=== PATIENT | female | born 1995 | race Caucasian/White ===

== ENCOUNTER 2021-04-04 14:17 | Emergency (ER) | payer SELFPAY ==
[2021-04-04 14:36] VITALS: BP 145/93; PULSE 116
--- NOTE | 2021-04-04 14:56 | EDM.PDOC ---
ED HPI GENERAL MEDICAL PROBLEM - General Chief Complaint: Allergic Reaction Stated Complaint: ALLERGIC REACTION Time Seen by Provider: 04/04/21 14:48 Source of Information: Reports: Patient History Limitations: Reports: No Limitations - History of Present Illness INITIAL COMMENTS - FREE TEXT/NARRATIVE: Luca is a 25 year old female whom present to ER with acute onset of chest t ightness and forceful cough. Luca has been using nicotine vaping pen for quite some time at increased dosage and now using 60% nicotine solution which can be purchased on a local smoke/vape shop down [facility]. Luca has known she needs to quit vaping for quite some time but no trigger to change until this weekend during a family reunion, multiple people verbalized concern regarding her coughing and symptoms. Luca went to strawberry picking today resulting in more significant bronchospasms and symptoms of cough variant asthma with environmental trigger and underlying chronic pneumonitis due to vaping. Luca got scared about her lungs and lung health to the point of presenting to ER for evaluation, treatment and recommendations. - Related Data Allergies Allergy/AdvReac Type Severity Reaction Status Date / Time Penicillins Allergy Hives Verified 04/04/21 14:41 Home Meds: Home Meds Albuterol [Proair HFA] 1 puff INH Q2HR PRN 02/07/15 [History] Albuterol [Proventil Neb Soln] 2.5 mg .XX QID 3 Days #20 ml 04/04/21 [Rx] Albuterol [Ventolin HFA] 2 puff .XX Q4HR PRN 90 Days #1 ea 04/04/21 [Rx] Varenicline [Chantix] 0.5 - 1 mg PO BIDPC 60 Days #60 tab 04/04/21 [Rx] norgestimate-ethinyl estradioL [Tri-Sprintec Tablet] 04/04/21 [History] Past Medical History - Past Health History Medical/Surgical History: Denies Medical/Surgical History Social & Family History - Recreational Drug Use Recreational Drug Type: Reports: Marijuana/Hashish ED ROS ALLERGIC REACTION - Review of Systems Review Of Systems: Comprehensive ROS is negative, except as noted in HPI. ED EXAM GENERAL NO PERIP PULSE - Physical Exam Exam: See Below Exam Limited By: No Limitations General Appearance: Alert, WD/WN, Moderate Distress (forceful cough to point of gagging vomiting and tearful) Ears: Hearing Grossly Normal Nose: Normal Inspection, Normal Mucosa, Nasal Drainage, Clear Rhinorrhea Throat/Mouth: Normal Inspection, Normal Voice, No Airway Compromise Neck: Normal Inspection Respiratory/Chest: No Respiratory Distress, Lungs Clear, Other (cough respsone with any deeper respiration attempts (caugh variant asthma) ) Cardiovascular: Normal Peripheral Pulses, Regular Rate, Rhythm Extremities: Normal Inspection, Normal Range of Motion Neurological: Alert, Oriented, CN II-XII Intact Psychiatric: Anxious, Tearful Skin Exam: Warm, Dry, Intact, Normal Color Course - Vital Signs Last Recorded V/S: Last Vital Signs Temp 36.6 C 04/04/21 14:47 Pulse 116 H 04/04/21 14:47 Resp 18 04/04/21 14:47 BP 145/93 H 04/04/21 14:47 Pulse Ox 98 04/04/21 14:47 - Orders/Labs/Meds Orders: Active Orders 24 hr Category Date Time Status RT Aerosol Therapy [RC] ASDIRECTED Care 04/04/21 14:57 Active RT Post Treatment Assessment [RC] Click to Edit Care 04/04/21 14:57 Active Meds: Medications Discontinued Medications Generic Name Dose Route Start Last Admin Trade Name Freq PRN Reason Stop Dose Admin Albuterol 2.5 mg 04/04/21 14:57 04/04/21 15:03 Albuterol 0.083% 2.5 Mg/3 Ml Neb Soln NEB 04/04/21 14:58 2.5 mg ONETIME ONE Administration Albuterol 0 gm 04/04/21 14:57 04/04/21 15:03 Albuterol 8 Gm Inhaler INH 04/04/21 14:58 2 puff ONETIME ONE Administration Departure - Departure Time of Disposition: 15:48 Disposition: Home, Self-Care 01 Clinical Impression: Pneumonitis, Encounter for smoking cessation counseling - Discharge Information Prescriptions: Varenicline [Chantix] 0.5 - 1 mg PO BIDPC 60 Days #60 tab Albuterol [Proventil Neb Soln] 2.5 mg .XX QID 3 Days #20 ml Albuterol [Ventolin HFA] 2 puff .XX Q4HR PRN 90 Days #1 ea PRN Reason: cough Instructions: Asthma, Adult, Pneumonitis, Asthma Attack Prevention, Adult, Tobacco Use Disorder, Nicotine skin patches, Nicotine nasal spray, Nicotine inhaler, Nicotine chewing gum, Nicotine lozenge Referrals: PCP,None [Primary Care Provider] - Forms: ED Department Discharge Additional Instructions: ([id number]). Telephone counseling Telephone counseling can be used as the primary behavioral therapy approach or incorporated into a team-based approach to smoking cessation. Proactive telephone counseling has been shown to be more effective than reactive telephone counseling. In the proactive approach, a counselor initiates a call to a smoker on a prearranged schedule; in reactive counseling, a smoker initiates the call to a counselor. Most quitlines offer proactive calls several times during the quitting process, and many quitlines offer smoker-initiated reactive counseling also. (See "Overview of smoking cessation management in adults", section on 'Variations of the 5A's approach'.) Smokers can access free proactive telephone counseling throughout the [place] at a toll-free number (5-581-RZFC-NOW). Some states in the [facility] have developed fax-referral programs to link clinician offices to their state telephone quitline. In some states, the quitline distributes free nicotine replacement therapy to eligible quitline callers [20]. Telephone counseling programs are more effective than simple self-help interventions, in which smokers are provided with take-home written or audiovisual material to aid them in quitting on their own [21]. In a clinical trial, among practices that were randomized to routinely refer smokers to a telephone quitline, patients had higher smoking cessation rates at 3 and 12 months compared with those who received standard general practitioner care [22]. Text messaging Mobile phone text messaging consists of personalized smoking cessation support through a series of automated motivational messages. Messages suggest behavioral changes and provide positive feedback, and allow patients to request additional assistance as needed. The [employer] [place] has developed a mobile phone smoking cessation service for adolescents and young adults: SmokeFreeTXT program. Web resources and interventions Smoking cessation interventions that are delivered in more than one format increase abstinence rates. Thus, supplementing information discussed during interventions with self-help materials can serve both as a reinforcement and a time-saving resource for the clinician. Several organizations provide patient resource areas or learning centers where patients can access additional materials. Web-based tools may assist in smoking cessation, most notably if the materials are tailored to the user, interactive, and accessed frequently [27]. Website resources include the following: [employer] Offers telephone, text, tailored email web-based support and apps to support smoking cessation. Includes information and resources from the [employer] to help with quitting smoking. Stop Smoking Offers information and resources, as well as contact with a counselor via telephone, email, or a chat function. Includes an online guide by the [employer] on smoking cessation. [employer] [facility] [place] Offers telephone and online support. Includes information on smoking cessation in [place] and [place] and general information on health effects of tobacco. Smoke[employer] Offers free texting programs, telephonic and chat support, access to smartphone applications (apps), information on healthy habits, the effects of smoking on health, and tips on preparing to quit, including resources specifically for women and teens, in [place] and [place] on a website of the [place] Department of Health and Human Services. Includes a tool patients may use to build their quit plan. Phone apps Smoking cessation applications (apps) on smart phones have the potential to be useful as behavioral therapy tools; however, studies of smoking cessation apps have determined there is often low adherence to clinical practice guidelines [32-35]. A review of free smartphone applications (apps) available in 2014 showed that, compared with apps available two years earlier, the newer apps were less likely to use behavioral change techniques associated with success in quitting smoking and more likely to offer information about pharmacotherapy and coping with aircraft air conditioning mechanic vings [36]. Several types of behavioral interventions through mobile phones are being studied, including short video clips and cognitive behavioral tips to quit smoking; however, rigorous studies of the long-term effects of mobile phone apps on smoking cessation are needed [37-39]. CIPRIANO: Avoid, Change, Escape. Strategies for coping with smoking triggers. Strategy Helpful statements Helpful questions Avoid - staying away from high-risk environments As smokers prepare or try to quit, it is sometimes helpful to avoid people, places, and events that may tempt them to smoke. What are the things that trigger you to smoke? Which of these do you think you can avoid over the next week or so? Change - altering a high-risk situation Sometimes it's not possible to avoid the things that trigger smoking. But another option is to change the situation, even a little, so that you feel less tempted to smoke. What are a couple of situations that trigger your smoking but that may be hard to avoid? What can you do to change the situation to make smoking less tempting? Escape - planning how to excuse oneself from high-risk situations Sometimes, situations catch you by surprise. Staying in the situation can make it too tempting to smoke. In these cases, another option may be to leave the situation. Did you find yourself lately in a situation like this? What happened? Would leaving have been an option? What would it be like to leave? Sepsis Event Note (ED) - Evaluation Sepsis Screening Result: No Definite Risk - Focused Exam Vital Signs: Vital Signs Temp Pulse Resp BP Pulse Ox 04/04/21 14:47 36.6 C 116 H 18 145/93 H 98 04/04/21 14:34 36.6 C 116 H 18 145/93 H 98 - My Orders Last 24 Hours: My Active Orders 04/04/21 14:57 RT Aerosol Therapy [RC] ASDIRECTED RT Post Treatment Assessment [RC] Click to Edit - Assessment/Plan Last 24 Hours: My Active Orders 04/04/21 14:57 RT Aerosol Therapy [RC] ASDIRECTED RT Post Treatment Assessment [RC] Click to Edit Plan: FIRST-LINE AGENTS Nicotine replacement therapy The goal of nicotine replacement therapy (NRT) is to relieve nicotine withdrawal symptoms by providing nicotine without the use of tobacco, while the individual breaks the behavior of cigarette smoking. First-line NRT does not include electronic cigarettes. Safety Side effects common among all NRT products include gastrointestinal symptoms (nausea, vomiting, abdominal pain, diarrhea), headache, and local irritation depending on the delivery method [59]. Those who experience side effects from NRT products can titrate use of the product to minimize side effects or change products. The side effect profile specific to each type of NRT is discussed below [60]. Patients may worry that they will become dependent on NRT, but nicotine dependence rarely occurs, especially with the long-acting patch [60]. Patients may also worry that nicotine causes cancer, which it does not. NRT is safe to use in patients with known stable cardiovascular disease (CVD). While there is limited information regarding its use after acute coronary syndrome (ACS), it is generally used to reduce nicotine withdrawal symptoms in the hospital when needed [1]. (See 'Cardiovascular disease' above and "Cardiovascular effects of nicotine", section on 'Safety of nicotine replacement therapy'.) Efficacy Studies show that NRT is effective for smoking cessation. Few trials have directly compared one product with another; however, in randomized trials, all individual NRT products were found to be superior to placebo, increasing quit rates up to twofold (table 2) [17,18,61,62]. In one randomized trial evaluating NRT (including patch, gum, inhaler, and nasal spray) in a general adult population, there was no difference in efficacy between products [63]. The efficacy of NRT for patients with severe mental illness is described separately. (See "Modifiable risk factors for cardiovascular disease in patients with severe mental illness", section on 'Nicotine replacement treatment'.) The consensus among experts, supported by evidence from most clinical trials, is that single-agent NRT is less effective than combining the long-acting patch with a short-acting form such as gum, lozenge, or inhaler [1,2]. In a meta- analysis of 14 randomized trials, use of a nicotine patch combined with a short- acting NRT product (gum, spray, or inhaler) was more effective than a single type of NRT (relative risk 1.25, 95% CI 1.15-1.36) [64]. Combination NRT was also found to be more effective than single-product therapies in other trials [ 54,55,65]. However, in one randomized trial of 1086 smokers that compared 12 weeks of individual NRT (nicotine patch), combination NRT (nicotine patch plus nicotine lozenge), and varenicline, there were no differences in biochemically confirmed rates of smoking abstinence among the three groups [14]. Additionally, in some, but not all trials, NRT benefits men more than women [ 66,67]. Administration For tobacco users wishing to use NRT, we suggest a combination of long- and short-acting NRT as initial therapy. Differences in the bioavailability of NRT products provide the rationale for combining NRT products to increase efficacy for smoking cessation [61]. NRT products can be used in combination because each agent produces a lower blood nicotine level than does smoking one pack of cigarettes daily. In addition, individuals who smoke already have experience titrating their nicotine intake to avoid both nicotine withdrawal and nicotine overdose; they have performed this titration throughout their years as cigarette smokers. The initial dosing of most NRT products is based on the number of cigarettes smoked daily, as discussed below. NRT dose is then gradually tapered. In general, NRT use is recommended for two to three months after smoking cessation, although NRT use for as long as an individual is at high risk for relapse is acceptable because NRT is much safer than continuing to smoke. Some people may need to use the products indefinitely. In addition, NRT products can also be used while the person is still smoking [68]. Nicotine transdermal patch (long-acting) The nicotine patch provides the most continuous nicotine delivery among all NRT products and is the simplest NRT to use. The patch has a long-acting, slow-onset pattern of nicotine delivery, which produces relatively constant relief from withdrawal over 24 hours [69] but requires several hours to reach peak levels. Compliance with the patch is high; however, the user cannot adjust the dose of nicotine being released to respond to nicotine cravings and withdrawal symptoms. The patch is available over the counter and by prescription in the [place]. ?Dosing and instructions for nicotine patch Initial patch dosing is determined by the number of cigarettes smoked daily when the patch is started as well as the patient's weight: >10 cigarettes per day: apply 21 mg/day patch =10 cigarettes per day: apply 14 mg/day patch Remove and replace the patch with a new one each morning to any non-hairy skin site; rotate the site daily to avoid skin irritation, the most common side effect. [id number]-shg-cmshlva topical hydrocortisone (1% cream or ointment) may be used to relieve skin irritation if it occurs. If leaving the patch on overnight causes the frequently reported side effects of insomnia and vivid dreams, remove the patch at bedtime and replace with a new one the next morning. Smoking cessation rates are similar whether the patch is left on for 24 hours or taken off at night [70]. If the patch is removed at night and replaced with a new one in the morning, adequate plasma levels of nicotine are reached 30 minutes to three hours after the new patch is applied [71]. If morning nicotine cravings occur before plasma nicotine levels rise, we advise use of a short-acting NRT (eg, gum, lozenge) while waiting for the new nicotine patch to take effect. Although patches are typically marketed with instructions to taper the dose over 12 weeks, in clinical trials and experience, tapering has not improved smoking cessation rates [1]. Tapering the dose is not required, but optional; this approach can be used if patients feel that cravings and withdrawal symptoms are well controlled, but they wish to reduce the dose. As examples: ?For patients using the 21 mg/day patch successfully, the dose may be lowered to 14 mg/day after six weeks. For patients who prefer to lower the dose further, this can be followed by the 7 mg/day patch for the duration of therapy, although continuation of the 21 mg/day or the 14 mg/day dose for the duration of therapy is reasonable. ?For patients using the 14 mg/day patch successfully, the dose may be continued for the duration of treatment. For patients who prefer, the dose can be lowered to 7 mg/day after the initial six weeks, and this dose may be continued for the remainder of therapy. ?Duration of nicotine patch therapy - Longer duration (more than 8 to 10 weeks) of treatment with the nicotine patch may lead to improved smoking cessation rates. Generally, NRT is used until a patient feels that they have stabilized as a nonsmoker. The patch may be continued longer, even indefinitely if needed, as NRT is safer than continued smoking. NRT is often used for a longer period in patients with comorbid psychiatric illness or other substance use disorders. In a randomized trial of 568 smokers that compared eight weeks of nicotine patch therapy with extended therapy (24 weeks), longer treatment resulted in higher rates of seven-day point-prevalence abstinence at 24 weeks (odds ratio [OR] 1.81, 95% CI 1.23-2.66) [72]. A subsequent randomized trial in 525 smokers who received 12 sessions of smoking cessation behavioral counseling along with the nicotine patch for 8, 24, or 52 weeks found benefit at 24 weeks to using the nicotine patch for 24 or 52 weeks rather than for 8 weeks. However, there were no differences in abstinence rates at 52 weeks [73]. Short-acting nicotine replacement therapy A short-acting form of NRT (lozenge, gum, inhaler, or nasal spray) can be used as a single agent or can be added to nicotine patch therapy to help control cravings and manage withdrawal symptoms. However, short-acting preparations require repeated use throughout the day, lead to more variable nicotine levels than the patch, and require more instructions for correct use. Patients can be instructed to use the product when they have a craving, although this generally leads them to underuse the products. A preferred approach for those in whom this "as needed" use of short-acting NRT fails to control cravings is to have the individual use the product at least once every hour while awake and more often if needed. The choice of a short-acting agent depends on patient preference and comorbidities (eg, reactive airways, temporomandibular disorders, poor dentition). The nicotine patch, lozenge, and gum are available in the [place] without a prescription; nasal spray and oral inhaler require a prescription. Nicotine mouth spray and a sublingual tablet are available outside the [place]. Nicotine gum Nicotine gum is a commonly used short-acting NRT. Chewing the gum releases nicotine, which is absorbed through the oral mucosa. This results in peak blood nicotine levels 20 minutes after starting to chew. Nicotine gum is available in several flavors that most users find preferable to the original flavor. ?Dosing is determined by how soon the first cigarette is typically smoked upon awakening [74]: For people who smoke within 30 minutes of awakening: the 4 mg dose is recommended For people who wait more than 30 minutes after awakening to smoke: the 2 mg dose is recommended ?Chew at least one piece of gum every one to two hours while awake and also whenever there is an urge to smoke. ?Patients may use up to 24 pieces of gum per day for the first six weeks of treatment. ?Gradually reduce use over the next six weeks, for a minimum treatment duration of three months. ?Proper chewing of gum is important for optimal results. "Chew and park" is recommended: chew the gum until the nicotine taste appears, then "park" the gum against the buccal mucosa until the taste disappears, then chew a few more times to release more nicotine. Repeat this for 30 minutes, then discard the gum (because all nicotine in the gum has been released). In addition, gastric and esophageal irritation can occur if the gum is chewed too rapidly, because nicotine is released faster than it can be absorbed by the buccal mucosa and the nicotine is thus swallowed. Nicotine absorbed from the gastrointestinal tract is largely metabolized by the liver and is therefore relatively ineffective for smoking cessation. ?Acidic beverages (eg, coffee, carbonated drinks) should be avoided before and during gum use, as acidic beverages lower oral pH, which causes nicotine to ionize and reduces nicotine absorption. Side effects are mostly a consequence of excess nicotine release with overly vigorous chewing and consist of nausea, vomiting, abdominal pain, constipation, hiccups, headache, excess salivation, a sore jaw, and mouth irritation or ulcers. Chewing gum may exacerbate temporomandibular joint disease and the gum can damage or adhere to dental appliances. Those with temporomandibular joint disease, with poor dentition, or who use dental appliances (eg, removable orthodontic appliances, dentures) may do better with an alternative short-acting form of NRT such as the lozenge or inhaler. Nicotine lozenge Nicotine lozenges are a commonly used short-acting NRT product, with pharmacokinetics similar to nicotine gum. Lozenges are easier to use correctly than nicotine gum and are also available in different flavors. A smaller mini-lozenge is also on the [place] market. It dissolves more rapidly and delivers nicotine more rapidly than the original lozenge and in our clinical experience is preferred by most people who smoke. ?Dosing is determined by how soon the first cigarette is typically smoked upon awakening [75]: For those who smoke within 30 minutes of awakening: the 4 mg dose is recommended For those who wait more than 30 minutes after awakening to smoke: the 2 mg dose is recommended ?Patients may use up to one lozenge every one to two hours for the first six weeks of treatment. The maximum dose is five lozenges every six hours or 20 lozenges per day. ?Gradually reduce number of lozenges used per day over the next six weeks. ?Place lozenge in the mouth and allow it to dissolve over 30 minutes. The lozenge does not need to be chewed. An advantage of the lozenge over the gum is that it can be used in those with temporomandibular disorders, poor dentition, or dentures. Side effects include mouth irritation or ulcers, in addition to nicotine-related side effects of abdominal pain, nausea, vomiting, diarrhea, headache, and palpitations. Nicotine inhalers These consist of a mouthpiece and a plastic, nicotine- containing cartridge. The inhaler addresses not only physical dependence but also the behavioral and sensory aspects of smoking (ie, having a cigarette between one's fingers and inhaling from the cigarette). When the individual inhales through the device, nicotine vapor (not smoke) is released, deposited primarily in the oropharynx, and absorbed through the oral mucosa. Nicotine vapor does not reach the lungs to an appreciable extent. The ad joseph use of the nicotine inhaler produces plasma nicotine levels that are roughly one-third of those that occur with cigarette smoking. The pharmacokinetics of the inhaler resemble those of nicotine gum. Initial dosing of the nicotine inhaler is individualized "as needed" and tapered over the course of therapy: ?Patients may use 6 to 16 cartridges per day for the first 6 to 12 weeks of treatment ?Gradually reduce dose over the next 6 to 12 weeks When using the nicotine inhaler, it is important to puff in short breaths or inhale into back of throat (not the lungs). Twenty minutes of continuous puffing may yield the best effect, but patients may individualize dosing. Nicotine in the inhaler is used up after 20 minutes of puffing (eg, puffing on inhaler for 10 minutes gives enough nicotine for two uses). Once opened, cartridge remains effective for 24 hours. Side effects occurring commonly include localized irritation of the mouth or throat, particularly during the early stages of use. Because inhaled nicotine may cause bronchospasm, it may be less appropriate for individuals with a history of severe airway reactivity. Nicotine nasal spray The nicotine nasal spray delivers an aqueous solution of nicotine to the nasal mucosa. Absorption via nasal mucosa results in peak nicotine levels 10 minutes after nasal spray use, which is a more rapid rise in plasma nicotine concentration than that produced by agents absorbed via the oral mucosa (eg, gum, inhaler, or lozenge). Nasal spray more closely mimics changes in nicotine concentration that occur while smoking, although the nasal spray does not increase nicotine levels nearly as fast as smoking a cigarette [76]. However, inhaling nicotine into the nasal mucosa produces side effects, particularly nasal irritation, that have limited its tolerability. Dosing, duration, and instructions for use: ?Dose is one or two sprays per hour ?Use for about three months ?The maximum dose is 10 sprays per hour, not to exceed 80 total sprays per day Side effects include nasal and throat irritation, rhinitis, sneezing, and tearing. Nasal irritation is extremely common, occurring in 94 percent of patients during the first two days of use and continuing in 81 percent of patients after three weeks of therapy [77]. Varenicline Varenicline reduces the symptoms of nicotine withdrawal by binding with high affinity and acting as a partial agonist at the alpha-4 beta-2 nicotinic receptor. It blocks nicotine from binding to the receptor, interrupting the reinforcing effects of nicotine that lead to nicotine dependence. Through this action, varenicline reduces the rewarding aspects of cigarette smoking [82-84]. Through its stimulating effects of the receptor, it also reduces withdrawal and cravings. Safety The most common side effects reported are nausea and disordered sleep, including insomnia and abnormal (vivid, unusual, or strange) dreams. There were early concerns about neuropsychiatric and cardiovascular side effects of varenicline, but subsequent studies have not supported these concerns, and varenicline is generally considered safe. Varenicline is safe for use by tobacco users with chronic obstructive pulmonary disease (COPD) [85]. ?Neuropsychiatric effects Despite earlier concerns, subsequent data indicate that varenicline does not cause an excess of neuropsychiatric side effects compared with nicotine replacement or bupropion. In August 2016, the [place] Food and Drug Administration (FDA) removed the boxed warning about potential neuropsychiatric side effects. In the initial post-marketing period, there had been concern about the potential for varenicline's adverse psychiatric effects, especially in patients with underlying psychiatric comorbidities. Based on its review of post-marketing case reports, the FDA in 2008 had required varenicline (and bupropion) to carry a boxed warning about possible serious neuropsychiatric side effects, including suicide and suicidal ideation, associated with these medications [86]. The FDA also required the drug manufacturers to conduct a large randomized controlled trial of the two drugs efficacy and safety in patients with and without psychiatric illness (largely depression and anxiety disorders). The resulting double-blind trial, Evaluating Adverse Events in a Global Smoking Cessation Study (EAGLES), enrolled approximately 8000 smokers motivated to quit, half of whom had stable psychiatric disorders (eg, major depressive, bipolar, or anxiety disorders) [17]. Although patients with a psychiatric comorbidity had higher rates of neuropsychiatric symptoms than patients without this comorbidity, rates were low for both groups, and there was no difference between those treated with NRT, bupropion, varenicline, or placebo. Based on these data, the FDA removed the boxed warning for varenicline (and bupropion) in August 2016 [87]. In addition, in a previous meta-analysis including 39 randomized trials and over 10,000 participants with and without psychiatric illness, varenicline did not increase the risk of suicide or suicide attempts, suicidal ideation, depression, aggression, or compared with placebo [88]. ?Cardiovascular effects Although concern has been raised that varenicline might increase the risk of adverse cardiovascular events, the bulk of the evidence does not indicate an increased risk. For patients at low risk for an acute coronary event, it appears unlikely that varenicline is associated with a clinically meaningful increase in cardiovascular events. In addition, for high- risk patients, the effect of varenicline is less certain, although no large increase in risk has been observed. Further, it is likely that any cardiovascular risk of taking varenicline, if it exists, is likely to be far smaller than the risk of continuing to smoke cigarettes. A 2011 FDA advisory and a 2018 labeling update suggested that the known benefits of varenicline for smoking cessation be weighed against potential harms in patients with CVD [89,90 ]. The precise risk of cardiovascular events with varenicline in different populations is difficult to define because of limitations in the available evidence, although many trials suggest no increased risk. As examples: Two large meta-analyses of randomized trials found no differences in the rates of cardiovascular events in patients treated with varenicline compared with placebo [33,91]. However, the overall rates of cardiovascular events in the trials were low, limiting the power of the analyses to detect a difference. In an earlier meta-analysis in which trials without cardiovascular events were excluded from the analysis, there was an association between varenicline and the cardiovascular events (OR 1.72, 95% CI 1.09-2.71) [92]; however, methodologic issues limit the conclusions of this study [93]. In a randomized double-blind controlled trial evaluating 12 weeks of varenicline therapy in 714 smokers with stable CVD, there was no difference in mortality or major cardiovascular events at 52 weeks compared with placebo [29]. The study conclusions are limited, however, by the small trial size and the limited follow-up. In another randomized controlled trial including approximately 300 patients hospitalized with ACS, there were similar rates of major adverse cardiovascular events among those treated with 12 weeks of varenicline and placebo at 52 weeks [39]. In the EAGLES trial that included patients with stable CVD or cardiovascular risk factors, treatment with varenicline was not associated with an increased risk of major cardiovascular events up to one year compared with placebo [31]. In addition, the majority of observational studies have not shown an increase in cardiovascular events with use of varenicline. One study found similar rates of major cardiovascular events among smokers who took varenicline or bupropion [94 ], and another study showed lower rates of ischemic heart disease and stroke among varenicline than NRT users [95]. However, in a retrospective database analysis, varenicline initiation was associated with a higher relative risk but small absolute increase in adverse cardiovascular events [96]. (See 'Cardiovascular disease' above and 'Our approach' above.) ?Driving or flying advisory Some concern has been raised about vareniclines effect on an corn sheller operator of a motor vehicle. A review of adverse drug reports by the [place] for Safe Medication Practices had found an unusually high rate of accidental injuries from road accidents and falls in patients taking varenicline [97]. Based on this report, the FDA issued a public health advisory stating that patients taking varenicline may experience impairment of the ability to drive or operate heavy machinery [82]. However, in a subsequent large observational study in [facility], varenicline was not associated with an increase in traffic crimes or transport accidents [98]. Efficacy The efficacy of varenicline for smoking cessation has been demonstrated in many studies. A meta-analysis of randomized trials found that varenicline was more effective for smoking cessation than placebo (RR 2.27, 95% CI 2.02-2.55) [12]. In another meta-analysis of randomized controlled trials, more patients were abstinent at 24 weeks with varenicline compared with both placebo and nicotine patch (RR 2.24, 95% CI 2.06-2.43; and RR 1.25, 95% CI 1.14- 1.37 respectively) [13]. Similarly, in a [id number] double-blinded randomized controlled trial comparing multiple agents (varenicline, bupropion, nicotine patch) and placebo, varenicline was more effective in producing six months of tobacco abstinence than other drugs or placebo [17]. Administration Dosing, duration, and instructions for use: ?Patients are instructed to quit smoking one week after starting varenicline, by which time stable blood levels are achieved. However, a longer preloading period of up to five weeks prior to the quit date is also effective for achieving abstinence [75]. Although abruptly quitting smoking appears to be more effective, gradual smoking reduction (50 percent smoking reduction by week 4, another 50 percent reduction by week 8, then quitting by week 12) is an acceptable alternative [99]. For patients not yet ready to commit to a quit date, varenicline may be initiated to help with smoking reduction in advance of a quit attempt [4]. (See 'Individuals less committed to quitting' above.) ?The recommended dose of varenicline is 0.5 mg once daily for three days, then 0.5 mg twice daily for four days, and then 1 mg twice daily for the remainder of a 12-week course. The up-titration of varenicline dose is done to minimize gastrointestinal side effects, especially nausea. Dose reduction is required for those with creatinine clearance <30 mL/minute because varenicline is excreted almost entirely by the kidney. A four-week preload of varenicline produced higher abstinence rates at 12 weeks in a trial of 101 smokers, compared with those assigned to three weeks of placebo followed by one week of varenicline (47 versus 21 percent) [100]. ?Although evidence does not suggest that varenicline causes more neuropsychiatric symptoms than other FDA-approved smoking cessation aids, any patient started on varenicline who develops concerning neuropsychiatric symptoms (eg, changes in behavior, hostility, agitation, depressed mood, suicidal ideation, or suicide attempts) should stop the medication, contact their clinician, and seek medical attention right away. Adjusting dosing and duration: ?The risk of nausea is reduced if the dose of varenicline is titrated upon initiation [101]. Nausea can also be minimized by taking varenicline with food and a full glass of water. Alternately, the dose can be reduced to 0.5 mg twice daily if nausea occurs at the 1 mg dose. ?Dreams that are troubling to the patient may be reduced by taking the evening dose earlier in the day, by lowering the dose, or by skipping the evening dose if necessary. ?Patients who have successfully quit at 12 weeks may benefit from continuing on varenicline for an additional 12 weeks to prevent relapse. In a randomized trial including 1236 individuals who had quit smoking after an initial 12-week course of varenicline, those treated with varenicline for an additional 12 weeks had higher rates of continuous abstinence compared with those not continuing the medication (weeks 13 through 24: 71 versus 50 percent; weeks 13 through 52: 44 versus 37 percent) [58]. Increasing the dose of varenicline has not been shown to improve smoking cessation rates. Bupropion Bupropion is believed to act by enhancing central nervous system noradrenergic and dopaminergic release. Safety Bupropion is contraindicated in patients with a seizure disorder or predisposition to seizure because it reduces the seizure threshold. The risk of seizure is dose-dependent and is most often described in the setting of overdose and/or in patients with other risk factors for seizures. The FDA removed the boxed warning it had earlier required about potential neuropsychiatric side effects. Removal of the warning was based on a randomized trial that found no difference in adverse neuropsychiatric events comparing bupropion with nicotine patch or placebo in patients with or without a coexisting psychiatric disorder [17]. The concern about serious neuropsychiatric side effects associated with bupropion had been raised earlier by post-marketing case reports associating bupropion with increased risks of suicidal/self- injurious behavior or depression [102]. (See 'Psychiatric illness' above.) Bupropion is safe for use among individuals with stable CVD [26,31] and COPD [20 ]. Studies suggest that bupropion is safe, although not effective, for those hospitalized for acute myocardial infarction [41-43]. (See 'Cardiovascular disease' above.) The most common side effects of bupropion are insomnia, agitation, dry mouth, and headache. Other side effects of bupropion are discussed separately. (See "Atypical antidepressants: Pharmacology, administration, and side effects", section on 'Bupropion'.) Efficacy Randomized trials have demonstrated the efficacy of bupropion in smoking cessation. A 2020 meta-analysis of 46 randomized trials found that rates of smoking cessation are higher with bupropion monotherapy than placebo or no treatment (RR 1.64, 95% CI 1.52-1.77) [103]. In an included trial, patients receiving sustained-release bupropion (150 mg twice daily) had greater rates of point-prevalence abstinence at the end of a seven-week course (44 versus 19 percent) and at one year (23 versus 12 percent) compared with placebo [104]. Another randomized controlled trial including over 8000 smokers confirmed that bupropion was more effective than placebo in patients with and without psychiatric comorbidity [17]. In that study, varenicline produced higher quit rates than bupropion, while nicotine patch produced comparable cessation rates to bupropion. Other studies have demonstrated the efficacy of bupropion in specific populations of tobacco users, including Americans and those with stable CVD or COPD [20,26,105]. The use of bupropion in patients with CVD is discussed above. (See 'Cardiovascular disease' above.) Administration Several formulations of bupropion are available, including a sustained-release formulation (Zyban, which is licensed as an aid to smoking cessation and is identical to the antidepressant forms: generic sustained- release bupropion and Wellbutrin SR). Dosing, duration, and instructions for use: ?Bupropion sustained-release is started one week before the target quit date, since it takes five to seven days to reach steady-state blood levels. ?Abruptly quitting smoking appears to be more effective, although gradual smoking reduction (50 percent smoking reduction by week 4, another 50 percent reduction by week 8, then quitting by week 12) is an acceptable alternative [99 ]. ?The recommended dose of bupropion is 150 mg/day for three days, then 150 mg t wice daily thereafter [60]. ?We recommend treating for at least 12 weeks. Adjusting dosing and duration: ?Although it is less studied, bupropion 150 mg/day (rather than 300 mg/day) is an option for those who do not tolerate the full dose due to side effects. One randomized trial found that the 150 mg/day dose was as effective as the 300 mg/day dose and associated with fewer side effects [104]. ?Longer duration of treatment can be considered in individual cases, based on th e patients previous quit attempts and patient preference. However, if the rationale for longer treatment is improved mood, it is important to assess the change in depressive symptoms from the initiation of treatment and to make dosing adjustments accordingly. (See "Unipolar major depression in adults: Choosing initial treatment", section on 'Dose'.) Longer-duration therapy may prevent relapse in successful quitters. A randomized trial of 461 individuals who quit smoking after seven weeks of bupropion compared ongoing treatment for one year with either bupropion 300 mg/day or placebo [106]. Patients taking bupropion for one year had a higher abstinence rate at one year (51 versus 42 percent) that persisted 16 weeks after discontinuation of therapy (47 versus 37 percent), a longer median time to relapse after cessation of therapy (156 days versus 65 days), and less weight gain at two years (4.1 versus 5.4 kg). However, the abstinence rate at two years was the same in both groups (41 versus 40 percent
[2021-04-04] MEDS ORDERED: Albuterol 8 GM Inhaler INH ONE (14:57)
[2021-04-04] MEDS ORDERED: Albuterol 0.083% 2.5 MG/3 ML Neb Soln NEB ONE (14:57)
== END 2021-04-04 16:07 | disposition home or self-care (01) ==
LOC: JP.ED 14:17
DX: J18.9 Pneumonia, unspecified organism (principal); Z88.0 Allergy status to penicillin; Z71.6 Tobacco abuse counseling
CPT/HCPCS: 94640; 99284; A9270

== ENCOUNTER 2021-04-05 01:28 | Emergency (ER) | payer SELFPAY ==
[2021-04-05 02:29] VITALS: BP 153/101; PULSE 120
[2021-04-05] MEDS ORDERED: Albuterol/Ipratropium 3.0-0.5 MG/3 ML Neb Soln NEB ONE (02:33)
--- NOTE | 2021-04-05 03:08 | EDM.PDOC ---
ED HPI GENERAL MEDICAL PROBLEM - General Chief Complaint: Respiratory Problem Stated Complaint: COUGH Time Seen by Provider: 04/05/21 02:21 Source of Information: Reports: Patient History Limitations: Reports: No Limitations - History of Present Illness INITIAL COMMENTS - FREE TEXT/NARRATIVE: Luca is a 25-year-old female that was seen in the ED earlier today and started on an albuterol inhaler, albuterol nebs, and Chantix. She has a history for smoking and vaping which is complicated by a history of asthma and seasonal allergies. She had been vaping until she gave the plan to one of the nurses here. She states that after she went to [facility] to tack picker her prescription she did tack picker the inhaler and the Chantix but did not tack picker the albuterol neb medication and then tonight she has been using her rescue inhaler more frequently and called the ER to inquire about getting her nebs. She was told that since she already has an open prescription she would need to return and be evaluated again. She does state that after leaving the ER earlier today she did smoke some marijuana. Back Pain Score (Numeric/FACES): 4 - Related Data Allergies Allergy/AdvReac Type Severity Reaction Status Date / Time Penicillins Allergy Hives Verified 04/05/21 02:09 Home Meds: Home Meds Albuterol [Proventil Neb Soln] 2.5 mg .XX QID 3 Days #20 ml 04/04/21 [Rx] Albuterol [Ventolin HFA] 2 puff .XX Q4HR PRN 90 Days #1 ea 04/04/21 [Rx] Varenicline [Chantix] 0.5 - 1 mg PO BIDPC 60 Days #60 tab 04/04/21 [Rx] norgestimate-ethinyl estradioL [Tri-Sprintec Tablet] 1 tab PO DAILY 04/04/21 [History] Past Medical History - Past Health History Medical/Surgical History: Denies Medical/Surgical History Social & Family History - Caffeine Use Caffeine Use: Reports: Soda - Recreational Drug Use Recreational Drug Use: No ED ROS GENERAL - Review of Systems Review Of Systems: See Below Constitutional: Reports: No Symptoms HEENT: Reports: No Symptoms Respiratory: Reports: Shortness of Breath, Wheezing, Cough Cardiovascular: Reports: No Symptoms Endocrine: Reports: No Symptoms GI/Abdominal: Reports: No Symptoms : Reports: No Symptoms Musculoskeletal: Reports: No Symptoms Skin: Reports: No Symptoms Neurological: Reports: No Symptoms Psychiatric: Reports: Anxiety Hematologic/Lymphatic: Reports: No Symptoms Immunologic: Reports: Seasonal Allergy ED EXAM, GENERAL - Physical Exam Exam: See Below Exam Limited By: No Limitations General Appearance: Alert, Anxious, Mild Distress Eye Exam: Bilateral Eye: EOMI, PERRL Nose: Nasal Swelling, Clear Rhinorrhea Throat/Mouth: Normal Inspection, Normal Oropharynx, Normal Voice, No Airway Compromise Head: Atraumatic, Normocephalic Respiratory/Chest: No Respiratory Distress, Lungs Clear, Normal Breath Sounds, No Accessory Muscle Use Cardiovascular: Normal Peripheral Pulses, Regular Rate, Rhythm, No Murmur, Tachycardia Peripheral Pulses: 2+: Radial (R) Neurological: Alert, Oriented, Normal Cognition, No Motor/Sensory Deficits Psychiatric: Anxious Course - Vital Signs Last Recorded V/S: Last Vital Signs Temp 36.6 C 04/05/21 02:07 Pulse 120 H 04/05/21 02:07 Resp 20 04/05/21 02:07 BP 153/101 H 04/05/21 02:07 Pulse Ox 98 04/05/21 02:07 - Orders/Labs/Meds Orders: Active Orders 24 hr Category Date Time Status RT Aerosol Therapy [RC] ASDIRECTED Care 04/05/21 02:33 Ordered Meds: Medications Discontinued Medications Generic Name Dose Route Start Last Admin Trade Name Freq PRN Reason Stop Dose Admin Albuterol/Ipratropium 3 ml 04/05/21 02:33 04/05/21 02:48 Albuterol/Ipratropium 3.0-0.5 Mg/3 Ml Neb Soln NEB 04/05/21 02:34 3 ml ONETIME ONE Administration - Re-Assessments/Exams Free Text/Narrative Re-Assessment/Exam: 04/05/21 03:06 the patient was given a DuoNeb and feels much better now. I did send a prescription for the albuterol nebulized solution to the [facility] machine which she can fill here tonight. At this time I believe she is suitable for discharge home in satisfactory condition. Departure - Departure Time of Disposition: 03:06 Disposition: Home, Self-Care 01 Clinical Impression: Pneumonitis Acute tracheitis Qualifiers: Airway obstruction: without obstruction Qualified Code(s): J04.10 - Acute tracheitis without obstruction - Discharge Information Instructions: Asthma, Adult Referrals: PCP,None [Primary Care Provider] - Care Plan Goals: Please tack picker your albuterol nebulized solution from the [facility] machine in the lobby. Follow-up with your primary care provider for additional medication. Sepsis Event Note (ED) - Evaluation Sepsis Screening Result: No Definite Risk - Focused Exam Vital Signs: Vital Signs Temp Pulse Resp BP Pulse Ox 04/05/21 02:07 36.6 C 120 H 20 153/101 H 98 04/05/21 02:03 36.6 C 120 H 20 153/101 H 98 - Problem List & Annotations (1) Acute tracheitis SNOMED Code(s): 59769833 Code(s): J04.10 - ACUTE TRACHEITIS WITHOUT OBSTRUCTION Status: Acute Priority: Medium Current Visit: Yes Qualifiers: Airway obstruction: without obstruction Qualified Code(s): J04.10 - Acute tracheitis without obstruction (2) Pneumonitis SNOMED Code(s): 376096540 Code(s): J18.9 - PNEUMONIA, UNSPECIFIED ORGANISM Status: Acute Priority: Medium Current Visit: Yes - Problem List Review Problem List Initiated/Reviewed/Updated: Yes - My Orders Last 24 Hours: My Active Orders 04/05/21 02:33 RT Aerosol Therapy [RC] ASDIRECTED - Assessment/Plan Last 24 Hours: My Active Orders 04/05/21 02:33 RT Aerosol Therapy [RC] ASDIRECTED
== END 2021-04-05 03:13 | disposition home or self-care (01) ==
LOC: JP.ED 01:28
DX: J04.10 Acute tracheitis without obstruction (principal); J18.9 Pneumonia, unspecified organism; Z88.0 Allergy status to penicillin
CPT/HCPCS: 94640; 99283-25; J7620-GY

== ENCOUNTER 2022-08-06 03:04 | Emergency (ER) | payer BC, OTHER ==
[2022-08-06 03:23] VITALS: BP 150/104; PULSE 97
[2022-08-06] MEDS ORDERED: Ketorolac 30 MG/ML SDV IM ONE (03:38)
[2022-08-06] MEDS ORDERED: Ketorolac 10 MG Tab PO ONE (04:07)
== END 2022-08-06 04:37 | disposition home or self-care (01) ==
LOC: JP.ED 03:04
DX: S57.81XA Crushing injury of right forearm, initial encounter (principal); Z91.030 Bee allergy status; Y04.0XXA Assault by unarmed brawl or fight, initial encounter; Y92.219 Unspecified school as the place of occurrence of the external cause
CPT/HCPCS: 73090; 96372; 99284; A9270; J1885

== ENCOUNTER 2022-09-03 20:08 | Emergency (ER) | payer OTHER ==
[2022-09-03 20:19] VITALS: BP 139/87; PULSE 111
[2022-09-03] MEDS ORDERED: Sodium Chloride 0.9% 10 ML Syringe FLUSH PRN (20:41)
[2022-09-03] MEDS ORDERED: Sodium Chloride 0.9% 1,000 ML IV SCH (20:45)
[2022-09-03] MEDS ORDERED: Sodium Chloride 0.9% 75 ML IV SCH (21:00)
[2022-09-03] MEDS ORDERED: Iopamidol 612 MG/ML 100 ML Bottle IV SCH (21:00)
[2022-09-03 21:17] LABS: ESTIMATED GFR 123 mL/min (>60)
[2022-09-03 21:39] LABS: CORONAVIRUS COVID-19 NAA NEGATIVE (NEGATIVE)
== END 2022-09-03 22:48 | disposition home or self-care (01) ==
LOC: JP.ED 20:08
DX: K52.9 Noninfective gastroenteritis and colitis, unspecified (principal); R14.3 Flatulence; Z88.0 Allergy status to penicillin; Z91.030 Bee allergy status; Z79.899 Other long term (current) drug therapy; Z87.891 Personal history of nicotine dependence; Z20.822 Contact with and (suspected) exposure to COVID-19
CPT/HCPCS: 0241U; 36415; 74177; 80053; 85025; 87046; 87899; 96360; 99284; J3490; J7030; Q9967

== ENCOUNTER 2024-09-25 13:29 | Emergency (ER) | payer BC, OTHER ==
[2024-09-25 14:52] VITALS: BP 130/88; PULSE 105
== END 2024-09-25 15:27 | disposition home or self-care (01) ==
LOC: JP.ED 13:29
DX: J40 Bronchitis, not specified as acute or chronic (principal); Z79.899 Other long term (current) drug therapy; Z88.0 Allergy status to penicillin; Z91.030 Bee allergy status
CPT/HCPCS: 87428-QW; 87651-QW; 99283; 99284